=== PATIENT | female | born 1930 | race Caucasian/White ===

== ENCOUNTER 2016-08-29 06:00 | Inpatient (IN) | payer OTHER, MEDICARE ==
[~2016-08-29] VITALS: Ht 165.1 cm; Wt 79.7 kg
--- NOTE | ~2016-08-29 | OR ---
PATIENT'S NAME: BETHANY PHILLIPSEN Elkin [facility] AGE: 86 Y [address] ROOM: [place] [address] LOCATION: GPCU ADMIT DATE: 08/29/2016 OR/Procedure Report DISCHARGE DATE: FAMILY PHYSICIAN: Enio Olson MD ATTENDING PHYSICIAN: MIGEL LESLIE SURGEON: Luisito Redding MD DATE OF PROCEDURE: 08/31/2016 PROCEDURE COMMUNITY HEALTH ADVISOR: Rosie Srinivasan, tower technician. PROCEDURES PERFORMED: 1. Bronchoscopy with bronchoalveolar lavage of the left lower lobe. 2. Bronchoscopy with therapeutic aspiration of blood clots and local injection of epinephrine solution. INDICATIONS AND PRE-PROCEDURE DIAGNOSES: 1. Hemoptysis. 2. Abnormal chest CT with dense consolidation in the left lower lobe. 3. History of atrial fibrillation. 4. Long-term anticoagulation. POSTPROCEDURE DIAGNOSES: 1. Hemoptysis due to active bleeding from left lower lobe. 2. Abnormal chest CT with dense consolidation in the left lower lobe. 3. History of atrial fibrillation. 4. Long-term anticoagulation. CONSENT: Consent was obtained from the patient and the patient's daughter, her POA, after all the indications, risks, benefits, and alternatives were explained at length. They verbalized understanding and provided an informed consent. The patient's daughter was available over the phone only. PROCEDURE DESCRIPTION: The patient was taken to the Endoscopy Suite where a laryngeal mask was placed by the Anesthesia Team uneventfully. The bronchoscope was advanced through the laryngeal mask and the airways were examined. Local anesthesia was achieved with lidocaine solution instillations. A total of 12 mL of 2% lidocaine solution was instilled at the level of vocal cords and bronchial trees. General anesthesia was managed by the Anesthesia MD, Dr. Patel. FINDINGS: The vocal cords had normal appearance. There was a small amount of bloody secretions in the distal trachea and at the takeoff of the right mainstem bronchus, and large amount of secretions in the left mainstem bronchus. All the secretions were aggressively suctioned using saline PATIENT'S NAME: BETHANY PHILLIPSEN Elkin [facility] AGE: 86 Y [address] ROOM: [place] [address] LOCATION: GPCU ADMIT DATE: 08/29/2016 OR/Procedure Report DISCHARGE DATE: FAMILY PHYSICIAN: Enio Olson MD ATTENDING PHYSICIAN: MIGEL LESLIE aliquots at times. There was evidence of active bleeding coming from the superior and lateral segments of the left lower lobe. However, there was no evidence of endobronchial tumors seen in any of the segments of both bronchial trees. She had severe inflammation and edema in the airways of the left lower lobe. A bronchoalveolar lavage was performed in the left lower lobe superior segment. 80 mL of saline were instilled with return of 20 mL of bloody bronchoalveolar lavage fluid. There was still evidence of minimal bleeding from the superior segment. Initially, I used cold saline instillations, but the bleeding continued. Eventually, I instilled 6 mL of epinephrine solution diluted to 1:11210. At the end of the procedure, there was no evidence of active bleeding. The bronchoscope was withdrawn and the patient was returned to the Anesthesia Team for further management. COMPLICATIONS: None. ESTIMATED BLOOD LOSS: None from the procedure. The patient had evidence of active bleeding at the time of procedure. SPECIMENS: The bronchoalveolar lavage will be sent for microbiology and cytology studies. MD MARIAH BLUE/modl /[id number] d: 08/31/162020 t: 09/01/16 1132, OPERATIVE SUMMARY
--- NOTE | ~2016-08-29 | DS ---
PATIENT'S NAME: LYLA PHILLIPS [facility] AGE: 86 Y [address] ROOM: [place] [address] LOCATION: GPCU ADMIT DATE: 08/29/2016 Discharge Summary DISCHARGE DATE: 09/03/2016 FAMILY PHYSICIAN: Enio Olson MD ATTENDING PHYSICIAN: Giuliana Matamoros TENTATIVE DATE OF DISCHARGE: September 03, 2016. PRIMARY DIAGNOSES: 1. Left lower lobe pneumonia, severe. 2. Hemoptysis. 3. Diabetes type 2. 4. Alzheimer's dementia. 5. Acute on chronic hypoxic respiratory failure. 6. Systemic inflammatory response syndrome. 7. Chronic kidney disease stage 3. PROCEDURE: Principal procedure done for the patient includes an EGD by Dr. Angel and also a bronchoscopy with a bronchoalveolar by Dr. Redding. LABORATORY DATA: On admission, WBC on admission was 12.6, prior to discharge was 5.6; H and H on admission was 11.5/35.5, prior to discharge was 10.4/31.5; platelets 203, prior to discharge it was 241. On admission, creatinine was 1.4, was stable throughout the hospital stay, upon discharge, it remained at 1.4. Sodium on admission is 138, prior to discharge remained same at about 140 upon discharge. Potassium was stable throughout her hospital stay, upon discharge it was 3.9. Bicarb was stable throughout hospital stay as well. BUN was 20, was also stable throughout the hospital stay. Magnesium on admission 1.9, prior to discharge remained at 1.9. Hemoglobin A1c was 8.4. INR was 1.0. Bronchoalveolar lavage for viral analysis was all negative. For chlamydia, it was also negative. Bronchioalveolar lavage analysis, wbc 0.95, neutrophil differential 75%. For CMV, is pending, and for Legionella, it is also pending as bronchoalveolar lavage. Microscopy, sputum fungus light growth. BAL Gram stain, bacteria not observed. Normal respiratory jcarlos. Bronchoalveolar lavage, no acid-fast observed. No fungal elements observed. No yeast culture in 2 days in bronchioalveolar lavage. Viral culture is still pending. RADIOLOGY: CT of the chest, dense streaky parenchymal opacities within the mid and lower left lung, underlining pneumonia cannot be excluded. In addition, there is a cavitary lesion at the mid left lung, underlining infection and abscess cannot be excluded. A cavitary mass or possible pneumatocele with addition of consolidation, small left pleural fluid collection, shotty anterior and middle mediastinal lymph nodes with a 16 mm precarinal lymph node present. PATIENT'S NAME: LYLA PHILLIPS [facility] AGE: 86 Y [address] ROOM: [place] [address] LOCATION: GPCU ADMIT DATE: 08/29/2016 Discharge Summary DISCHARGE DATE: 09/03/2016 FAMILY PHYSICIAN: Enio Olson MD ATTENDING PHYSICIAN: [facility] COURSE: For history of present illness, please take a look at the H and P, which was done by Dr. Matamoros. The patient was admitted to progressive care unit. Because of her presentation of possible hemoptysis versus hematemesis, the patient did get a GI consult, and the patient subsequently had an EGD done on the first day. EGD was essentially negative which did not reveal any sign or cause for hemoptysis except that it did show some blood on the vocal cord, so GI felt possibly the patient's presenting symptoms may have been secondary to hemoptysis. So the patient did get a CT of her chest done which was done on the next day of the hospital stay. She was started empirically on Levaquin from the first day of the hospital stay. After obtaining an abnormal CT chest, Pulmonary was consulted for further management given the patient's symptom of hemoptysis. For the second day of the hospital stay, the patient continued to have mild to moderate hemoptysis. Each time she coughed, she would have streaks, sometimes coin-sized bright red blood on her tissue. After the patient was evaluated by Pulmonary, they recommended to do a bronchoscopy on the third day of the hospital stay. The procedure was done, was well tolerated by the patient, and after this, they felt probably the patient's abnormal CT finding might be secondary to severe left lower lobe pneumonia and they recommended to continue on the antibiotics of Levaquin and also to continue on the Zosyn which was added after the abnormal CT scan was obtained. Pulmonary also continued to follow up with the patient, and the patient was continued on the Levaquin and Zosyn, and on September 02, 2016. After discussing with Pulmonary, they felt that the patient's Eliquis can be restarted just to monitor the patient and see if there will be worsening of the hemoptysis. Plan by Pulmonary was to continue to observe the patient for the next 24-48 hours after which the patient might be switched to p.o. antibiotics, after reviewing all the respiratory cultures which remained negative at the time of dictating this discharge summary. So the remaining part of the discharge summary will be done upon the patient's discharge. MEDICATION ON DISCHARGE: The antibiotics which the patient will be discharged on also will be dictated upon discharge. Other medications include: 1. Eliquis 2.5 mg p.o. twice daily. 2. Coreg 3.125 mg p.o. twice daily. 3. Cardizem 30 mg p.o. 3 times daily. 4. NovoLog sliding scale. 5. Florastor 250 mg p.o. twice daily, new medication. 6. Torsemide 20 mg p.o. daily. 7. Tylenol 650 mg p.o. q.6 hours p.r.n. 8. Dulcolax one tablet p.o. daily p.r.n. 9. Milk of magnesia 30 mL p.o. daily p.r.n. 10. Zofran 4 mg p.o. q.4 hours p.r.n. PATIENT'S NAME: LYLA PHILLIPS [facility] AGE: 86 Y [address] ROOM: [place] [address] [facility] ADMIT DATE: 08/29/2016 Discharge Summary DISCHARGE DATE: 09/03/2016 FAMILY PHYSICIAN: Enio Olson MD ATTENDING PHYSICIAN: Giuliana Matamoros 11. Potassium 8 mEq p.o. twice daily. 12. Humibid 600 mg p.o. twice daily as needed p.r.n. 13. Tramadol 50 mg p.o. q.4 hours p.r.n. 14. Albuterol 2 puffs nebs every 4 hours p.r.n. 15. Albuterol 2.5 mg 3 times daily p.r.n. 16. Lantus 10 units subcu q.h.s. 17. Aspirin 81 mg p.o. daily. 18. Fluticasone one puff daily. 19. Flonase 2 sprays in nose every day. 20. Myrbetriq 50 mg p.o. daily. 21. Actos 30 mg p.o. daily. 22. Exelon patch 9.5 mg transdermally every day. 23. Azelastine one drop twice daily in the eyes. 24. Tylenol PM extra strength one tablet p.o. q.h.s. Discharge time which was spent on this patient is approximately 35 minutes which included coordinating the patient's discharge plan with the care management team. MD WHIT MASTERSON/samuell /[id number] d: 09/02/16 2354 t: 09/13/16 1643, DISCHARGE SUMMARY
--- NOTE | ~2016-08-29 | CON ---
PATIENT'S NAME: LYLA PHILLIPS [facility] AGE: 86 Y [address] ROOM: [id number] [place], [place] [address] LOCATION: GPCU ADMIT DATE: 08/29/2016 Consultation DISCHARGE DATE: FAMILY PHYSICIAN: PHYSICIAN, UNKNOWN ATTENDING PHYSICIAN: MIGEL MATAMOROS DATE OF CONSULTATION: 08/29/2016 REFERRING PHYSICIAN: Migel Matamoros MD REASON FOR CONSULTATION: Hematemesis. HISTORY OF PRESENT ILLNESS: This is a very pleasant, 86-year-old female who was transferred from an outside facility after presenting there with a couple of episodes of hematemesis. The patient is a current resident at the [facility]. At the [facility], it was reported that she had a history of nausea, vomiting, and hematemesis. The patient is a slightly poor historian secondary to a history of dementia and confusion. While in the emergency room, she did have a little bit of cough where it was suspected that this could have likely been more hemoptysis versus hematemesis. She does have a history of DVT, with IVC filter placement. She also has a history of atrial fibrillation, on long- term anticoagulation being Eliquis. Her last dose of Eliquis was confirmed on 08/28/2016. Secondary to her mental status, we did discuss this with her daughter Pattie. It appears that there is a very distant history of an upper endoscopy, though she cannot give me any more details. At this time, the patient has been made n.p.o. She is also placed on Protonix. On examination, she did complain of some abdominal pain in her mid epigastric as well as her right upper quadrant, though again the patient is a slightly poor historian. She denies any chest pain, chest pressure, or shortness of breath at this time. PAST MEDICAL HISTORY: Hypertension; diabetes mellitus; heart disease; lung disease; renal disease; history of DVT, status post IVC filter placement; and CAD, status post multiple cardiac procedures. PAST SURGICAL HISTORY: Appendectomy, bladder suspension, cardiac cath, multiple cardiac procedures, cholecystectomy, colonoscopy, distant history of IVC filter placement, knee surgery, venous abdominal surgery, and tubal ligation. SOCIAL HISTORY: The patient currently resides at a [facility]. Per the medical review, it appears that there is no alcohol, tobacco, or illicit drug use. PATIENT'S NAME: LYLA PHILLIPS [facility] AGE: 86 Y [address] ROOM: [address] [place], [place] [address] LOCATION: GPCU ADMIT DATE: 08/29/2016 Consultation DISCHARGE DATE: FAMILY PHYSICIAN: PHYSICIAN, UNKNOWN ATTENDING PHYSICIAN: MIGEL MATAMOROS FAMILY HISTORY: Unknown secondary to the patient's dementia. ALLERGIES: PER THE MEDICAL RECORD, XANAX, AMBIEN, ARICEPT, BEE STING, COFFEE FLAVOR, COUMADIN, DARVOCET, DEODORANT, DILAUDID, EGGS, ETHER, FISH, MILK, MORPHINE SULFATE, NABUMETONE, PENICILLINS, PRADAXA, PREVACID, STEROID, TEA, AND ZOFRAN. CURRENT MEDICATIONS: Please refer to the medication administration record, significant for Eliquis with her last dose being 08/28/2016 as well as aspirin. REVIEW OF SYSTEMS: A 10-point review of systems was completed, all were negative except for those identified in the History of Present Illness. PHYSICAL EXAMINATION: GENERAL: A very pleasant, 86-year-old female who appears to be in no acute distress. VITAL SIGNS: Temperature 97.8, pulse of 71, respirations of 18, blood pressure 139/80, and oxygen saturation is 97%. SKIN: Economy, warm, and dry. No jaundice. HEENT: Head is normocephalic and atraumatic. Pupils are equal, round, and reactive to light. Sclerae are clear, nonicteric. Oral mucosa is pink and moist. No thyromegaly. NECK: Soft and supple. CARDIOVASCULAR: Regular. Normal S1 and S2. RESPIRATORY: Respirations even and unlabored. Lungs clear to auscultation. ABDOMEN: Soft and round. Mildly tender in the right upper quadrant and mid epigastric area with palpation. No rebound, rigidity, or guarding noted. Bowel sounds positive x4 quadrants. MUSCULOSKELETAL: No muscle weakness or atrophy. EXTREMITIES: No clubbing, cyanosis, or edema. NEUROLOGICAL: Grossly nonfocal. The patient does appear to be slightly confused secondary to dementia versus Xanax given at the outside facility. LABORATORY AND DIAGNOSTIC DATA: The patient did undergo laboratory evaluation at the outside facility showing white blood cell count of 12.4, hemoglobin stable at 12.7, hematocrit of 38, and platelets were 220. INR was 1.4 and PTT of 34. Sodium 136, potassium of 4.7, chloride of 101, CO2 of 27, BUN of 21, and creatinine 1.33. AST 22, alkaline phosphatase 105, total bilirubin 0.7, and ALT of 18. Lipase was 18. Lactic acid was normal at 1.0. Chest x-ray was also completed, showing left lower lobe pneumonia with slight pleural effusion. CT, according to the PATIENT'S NAME: LYLA PHILLIPS [facility] AGE: 86 Y [address] ROOM: [id number] [place], [place] [address] LOCATION: GPCU ADMIT DATE: 08/29/2016 Consultation DISCHARGE DATE: FAMILY PHYSICIAN: PHYSICIAN, UNKNOWN ATTENDING PHYSICIAN: MIGEL MATAMOROS medical record, was also completed that was "normal," though I do not have this report available at this time. ASSESSMENT AND PLAN: Again, this is a very pleasant, 86-year-old female who was transferred to [facility] for workup regarding hematemesis. Per the medical record, it does appear that the patient had hematemesis at the [facility]. Her hemoglobin appears to be stable at 12.7. This was discussed with the patient's daughter since the patient does have dementia as well as was given Xanax at the outside facility. There is a distant history of an upper endoscopy, though we do recommend going forth with an upper endoscopy for further evaluation. Risks, benefits, and alternatives were discussed with the patient's daughter per Dr. Tiffanie Angel as a phone consent was obtained. Further recommendations to be given status post upper endoscopy. The patient should be continued on Protonix IV until further notice. Thank you for this consult. EULOGIO MEDINA APRN FOR MD JOHN ROSS/samuell /[id number] d: 08/29/16 1814 t: 09/04/16 1441, CONSULTATION REPORT
--- NOTE | ~2016-08-29 | CON ---
PATIENT'S NAME: LYLA PHILLIPS [facility] AGE: 86 Y [address] ROOM: [place] [address] LOCATION: GPCU ADMIT DATE: 08/29/2016 Consultation DISCHARGE DATE: 09/03/2016 FAMILY PHYSICIAN: Enio Olson MD ATTENDING PHYSICIAN: Giuliana Matamoros DATE OF CONSULTATION: 08/31/2016 REFERRING PHYSICIAN: Luisito Redding MD INDICATION: Hemoptysis and abnormal CT. HISTORY OF PRESENT ILLNESS: This is an 86-year-old female, who was transferred from [place]. She has a history of diabetes, dementia, DVT with IVC, atrial fibrillation, on long- term anticoagulation. She lives in a [facility] and reportedly had a nonproductive cough for several days and says that she went to the ER because she "just did not feel well." She also had hemoptysis versus emesis, nausea, vomiting, and a fever of 100.5 during her ER evaluation. Because of possible hemoptysis versus emesis, she has already had an EGD since being admitted which did not demonstrate any esophageal lesions or blood in the stomach. It was noted that the only blood found were swallowed blood from hemoptysis. Therefore, she had a CT of the chest which revealed a cavitary lesion and adenopathy. We were consulted for the hemoptysis and abnormal CT with need for probable bronchoscopy. Currently, the patient denies any chest pain, shortness of breath, PND, orthopnea, wheezing, or edema. She has no history of tobacco use. PAST MEDICAL HISTORY: Includes hypertension, diabetes, heart disease, lung disease, history of DVT with IVC filter, atrial fibrillation on long-term anticoagulation, and dementia. ALLERGIES: SEE MAR. MEDICATIONS: See MAR. FAMILY HISTORY: Negative for lung disease. SOCIAL HISTORY: She lives in a [facility]. She has never smoked. PATIENT'S NAME: HAYLIE PHILLIPSLEEN [place] [facility] AGE: 86 Y [address] ROOM: [place] [address] LOCATION: GPCU ADMIT DATE: 08/29/2016 Consultation DISCHARGE DATE: 09/03/2016 FAMILY PHYSICIAN: Enio Olson MD ATTENDING PHYSICIAN: Giuliana Matamoros REVIEW OF SYSTEMS: A 12-point review of systems negative except for what is noted in the HPI. PHYSICAL EXAMINATION: VITAL SIGNS: Blood pressure 112/54, pulse 67, respiratory rate 16, temp 97.5, she is 2 L per nasal cannula at 98%. GENERAL: This is an 86-year-old female, who is alert and oriented x3 and appears in no acute distress at the time of exam. HEENT. Head: Normocephalic and atraumatic. Eyes, clear. NECK: Supple. No adenopathy. No carotid bruits or JVD. LUNGS: Decreased breath sounds with crackles at the left base. HEART: Regular rate and rhythm without murmur, gallop, or rub. ABDOMEN: Soft, nontender, and nondistended. Bowel sounds x4. EXTREMITIES: No cyanosis, clubbing, or edema. DIAGNOSTIC DATA: Potassium 3.6, sodium 138, BUN 26, creatinine 1.5. WBC 5.9, hemoglobin 10.7, hematocrit 35.2, platelets 240. CT of the chest showed cavitary lesion with adenopathy. ASSESSMENT: 1. Hemoptysis, most likely due to dense consolidation in the left lung. 2. Abnormal chest CT, suspect severe pneumonia with abscess formation versus myocardial infarction versus malignancy less likely. 3. Acute respiratory failure secondary to abnormal chest CT. 4. Long-term anticoagulation, on hold. PLAN: We will plan for bronchoscopy with BAL and possible endobronchial biopsies. Indications, risks, benefits, and alternatives were discussed with the patient who has agreed to the procedure. For now, we will continue with antibiotics, but she may need MRSA coverage. Thank you for the consult and opportunity to participate in the patient's care. BEATRIZ LOPEZ APRN FOR MD PARISH BLUE/siva /[id number] d: 09/11/162037 t: 09/26/16 0652, CONSULTATION REPORT
--- NOTE | ~2016-08-29 | HP ---
PATIENT'S NAME: LYLA PHILLIPS [facility] AGE: 86 Y [address] ROOM: [place] [address] LOCATION: GPCU ADMIT DATE: 08/29/2016 History & Physical DISCHARGE DATE: FAMILY PHYSICIAN: PHYSICIAN, UNKNOWN ATTENDING PHYSICIAN: MIGEL LESLIE DATE OF SERVICE: CHIEF COMPLAINT: Hematemesis, pneumonia. HISTORY OF PRESENT ILLNESS: This is an 86-year-old female who appears to have a history of DVT, paroxysmal atrial fibrillation on Eliquis, also has a history of diabetes, presented initially to [facility] from the retirement. She left out with complaints of nausea, vomiting, and hematemesis since last night. The patient also reports history of cough which has been mostly nonproductive, has been going on for the past several days in addition to this. The patient tells me that she had first noticed spitting up blood yesterday, but states that she did see blood in her vomitus last night, before her arrival to the emergency room. Upon evaluation, the patient was noted to have low-grade temperature of 100.5 as well. The patient during my visit here was sleepy and just gotten a dose of Ativan before her transportation here and was not able to get the detailed history from. The patient otherwise looks hemodynamically stable. Denies any abdominal pain, nausea, vomiting, diarrhea, constipation at this point. The patient is on Eliquis as well. PAST MEDICAL HISTORY: 1. Type 2 diabetes. 2. History of DVT. 3. Hypertension. 4. History of IVC filter placement. SOCIAL HISTORY: No reports of history of smoking, heavy drinking, or any other illicit drug use. FAMILY HISTORY: No reports of heart disease, cancer, or diabetes. REVIEW OF SYSTEMS: All systems have been reviewed and were negative except as described in the HPI. PHYSICAL EXAMINATION: PATIENT'S NAME: HAYLIE PHILLIPSLEEN Elkin [facility] AGE: 86 Y [address] ROOM: [place] [address] LOCATION: GPCU ADMIT DATE: 08/29/2016 History & Physical DISCHARGE DATE: FAMILY PHYSICIAN: PHYSICIAN, UNKNOWN ATTENDING PHYSICIAN: MIGEL LESLIE VITAL SIGNS: Temperature 97.8, respiratory rate 18, blood pressure 139/80, heart rate 72. GENERAL: The patient is sleepy but arousable. Awake, alert, oriented x3, in no acute distress. HEENT: Dry mucous membranes, but no scleral icterus or conjunctival pallor noted. SKIN: Without rash or lesions. CHEST: Clear to auscultation bilaterally. HEART: S1, S2. Regular rate and rhythm. ABDOMEN: Soft. Nontender, nondistended. Positive bowel sounds. EXTREMITIES: Without edema. MUSCULOSKELETAL: No joint tenderness, swelling, or muscular tenderness noted. NEURO: Grossly nonfocal. STUDIES: The patient has had CT scan of her abdomen and pelvis done, which was not remarkable for acute findings. Hemoglobin and hematocrit were stable. All her other labs looked okay as well. ASSESSMENT AND PLAN: 1. Hematemesis. This is in the setting of patient being on anticoagulation for what appears paroxysmal atrial fibrillation and history of deep venous thrombosis. The patient reports having had at least two episodes of what appeared to be hematemesis, although at this point we will ask for GI evaluation. We will keep n.p.o. We will put on Protonix IV b.i.d. and hold all anticoagulant. 2. Community-acquired pneumonia. Chest x-ray showed left lower infiltrate and did have a low-grade temp as well. We will continue treatment with IV Levaquin and monitor clinical progress. 3. Type 2 diabetes. We will treat with sliding scale insulin while the patient is alert and adjust accordingly. 4. Hypertension. The patient is normotensive. We will hold her blood pressure medications in the setting of possible gastrointestinal bleed and monitor clinical progress. 5. History of deep venous thrombosis. Looking at her chart, it appears that she does have history an IVC placement as well. We will hold all blood thinners at this point. 6. Paroxysmal atrial fibrillation. Hold. Blood thinners. 7. Deep venous thrombosis prophylaxis. We will use SCDs. 8. Chronic hypoxic respiratory failure. Continue her oxygen per her home regimen which is 2.5 L nasal cannula supplemental oxygen. PATIENT'S NAME: LYLA PHILLIPS [facility] AGE: 86 Y [address] ROOM: [id number] [place], [place] [address] LOCATION: [facility] ADMIT DATE: 08/29/2016 History & Physical DISCHARGE DATE: FAMILY PHYSICIAN: PHYSICIAN, UNKNOWN ATTENDING PHYSICIAN: MIGEL LESLIE MD BG/samuell /[id number] D: [id number] T: 520 HISTORY & PHYSICAL
--- NOTE | 2016-08-29 11:22 | NUR ---
Pt is 86 y/o female admit for hemoptysis/pneumonia/coffee ground emesis for hospitalist. Pt very lethargic. Arouses to voice after a few attempts. Follows commands. Pt has hx dementia/Alzheimers,CHF,htn,hypotension,CAD,aflutter/afib, DVT,PE,edema,emphysema,COPD,DM,PUD,GI bleed,N/V,renal insufficiency. See chart for complete hx. Pt resides at [facility]. Came via ambulance from [facility] in [place]. Pt sedated on arrival due to Xanax given en route or shortly before departure. Has many allergies. See chart. Red and yellow bracelets on. GI to consult.
[2016-08-29] MEDS ORDERED: NOVOLOG100 UNIT/M SUB-Q (12:00)
[2016-08-29] MEDS ORDERED: LANTUS (IN100 UNIT/M SUB-Q (12:02)
[2016-08-29] MEDS ORDERED: ASPIRIN LO-DOSE81 MG PO (12:02)
[2016-08-29] MEDS ORDERED: BREO ELLIPTA 11 EACH INH (12:03)
[2016-08-29] MEDS ORDERED: FLONASE 50 MCG/16 GM NOSE (12:04)
[2016-08-29] MEDS ORDERED: LUTEIN6 MG PO (12:06)
[2016-08-29] MEDS ORDERED: ACTOS30 MG PO (12:07)
[2016-08-29] MEDS ORDERED: MYRBETRIQ50 MG PO (12:07)
[2016-08-29] MEDS ORDERED: MIRALAX PO527 GM/BOT PO (12:08)
[2016-08-29] MEDS ORDERED: DEMADEX20 MG PO (12:09)
[2016-08-29] MEDS ORDERED: EXELON1 EAC1 TRANS (12:09)
[2016-08-29] MEDS ORDERED: AZELASTINE HCL6 ML OPHTH (12:10)
[2016-08-29] MEDS ORDERED: COREG 3.1253.125 MG PO (12:11)
[2016-08-29] MEDS ORDERED: ELIQUIS2.5 MG PO (12:11)
[2016-08-29] MEDS ORDERED: CARDIZEM30 MG PO (12:13)
[2016-08-29] MEDS ORDERED: KLOR-CON SPRINK8 MEQ PO (12:13)
[2016-08-29] MEDS ORDERED: TYLENOL PM EX-1 EACH PO (12:14)
[2016-08-29] MEDS ORDERED: TYLENOL325 MG PO (12:15)
[2016-08-29] MEDS ORDERED: MILK OF MA400 MG/5 M PO (12:16)
[2016-08-29] MEDS ORDERED: DULCOLAX5 MG PO (12:16)
[2016-08-29] MEDS ORDERED: PROVENTIL OR V6.7 GM INH (12:17)
[2016-08-29] MEDS ORDERED: ZOFRAN4 MG PO (12:17)
[2016-08-29] MEDS ORDERED: PROVENTIL2.5 MG/0.5 INH (12:19)
[2016-08-29] MEDS ORDERED: ULTRAM50 MG PO (12:20)
[2016-08-29] MEDS ORDERED: BUTALBITAL-ASA1 EACH PO (12:20)
[2016-08-29 14:17] LABS: BASOPHIL % 0.2 %; HEMATOCRIT 35.5 % (30.0-46.0); HEMOGLOBIN 11.5 g/dL (10.0-15.0); IMMATURE GRANULOCYTE % 0.3 %; LYMPHOCYTE # 1.2 K/uL (0.8-4.0); LYMPHOCYTE % 9.3 %; MCH 30.3 pg (27.0-34.0); MCHC 32.4 gm/dL (32.0-36.5); MCV 93.7 fl (83.0-98.0); MONOCYTE # 0.7 K/uL (0.0-1.0); MONOCYTE % 5.3 %; MPV 9.5 fl (9.4-12.4); NEUTROPHIL # (ANC) 10.7 K/uL (1.8-7.8); NEUTROPHIL % 84.9 %; NRBC % 0 /100WBC (0-0.00); PLATELET COUNT 203 K/uL (150-450); RBC 3.79 M/uL (3.00-5.00); RDW-CV 14.1 % (11.9-14.6); WBC 12.6 K/uL (4.0-11.0)
[2016-08-29 14:28] LABS: INR - (THERAPEUTIC) 1.07 (0.92-1.07); PROTIME 11.2 SECONDS (9.8-11.4)
[2016-08-29 14:33] LABS: ALBUMIN 2.5 gm/dL (3.5-5.0); ANION GAP 11.6 (10.0-19.0); CALCIUM 9.2 mg/dL (8.5-10.5); CREATININE 1.4 mg/dL (0.5-1.1); MAGNESIUM 1.9 mg/dL (1.8-2.6); POTASSIUM 4.6 mMol/L (3.7-5.1)
--- NOTE | 2016-08-29 16:43 | NUR ---
Significant Event: PT. GETTING TO BE MORE ALERT SINCE ADMISSION, CAN BE A/OX3 AT TIMES, BUT VERY FORGETFUL, WILL REPEAT WORDS AT TIMES. VSS ON 2L PER NC. EGD WAS NEGATIVE. PT. REFUSES TO GO DOWN FOR CT OF HER CHEST, NEED TO TRY LATER IF NOT IN AM. GETS UP 1 ASSIST WITH GAIT BELT/WALKER. NO COMPLAINTS OF PAIN THIS SHIFT. VOIDED X1. MILD SSI WITH AC/HS ACCU-CHECKS. IV TO LEFT CHEST PORT, FLUSHES WELL BUT NO BLOOD RETURN. RESTING WELL IN BED. Follow up: CONTINUE WITH POC.
--- NOTE | 2016-08-29 22:08 | NUR ---
For 1899 assessment: Patient did not allow nurse to assess bowels. Nurse reoriented patient and explained the importance of assessment and patient continued to refuse the assessment. Nurse will attempt to assess bowels for 2299.
--- NOTE | 2016-08-30 04:54 | NUR ---
Significant Event: A/O to person. Uncooperative with orientation questions. Agitated and combative at times. Used repetitive statements such as "I'm fine, leave me alone" when nurse attempted assessments. Bed alarm on at all times. Does not use call light. Pt attempted to get out of bed several times. Hx of dementia/alzheimers. VSS on 3L. LS clear; diminished in bases. Strong clearing cough. Coughed up bloody sputum x1. Hypoactive bowel sounds. 1 assist w/ walker. Follow up: CT today if patient is cooperative.
[2016-08-30 06:11] LABS: BASOPHIL % 0.3 %; EOSINOPHIL # 0.1 K/uL (0.0-0.5); EOSINOPHIL % 0.8 %; HEMATOCRIT 35.2 % (30.0-46.0); HEMOGLOBIN 11.5 g/dL (10.0-15.0); IMMATURE GRANULOCYTE % 0.4 %; LYMPHOCYTE # 1.3 K/uL (0.8-4.0); LYMPHOCYTE % 16.6 %; MCH 30.2 pg (27.0-34.0); MCHC 32.7 gm/dL (32.0-36.5); MCV 92.4 fl (83.0-98.0); MONOCYTE # 0.7 K/uL (0.0-1.0); MPV 9.7 fl (9.4-12.4); NEUTROPHIL # (ANC) 5.5 K/uL (1.8-7.8); NEUTROPHIL % 72.9 %; NRBC % 0 /100WBC (0-0.00); RBC 3.81 M/uL (3.00-5.00); RDW-CV 14.4 % (11.9-14.6); WBC 7.6 K/uL (4.0-11.0)
[2016-08-30 06:38] LABS: PLATELET COUNT 203 K/uL (150-450)
[2016-08-30 10:16] LABS: ANION GAP 13.1 (10.0-19.0); CALCIUM 9.3 mg/dL (8.5-10.5); CREATININE 1.4 mg/dL (0.5-1.1); POTASSIUM 4.1 mMol/L (3.7-5.1)
--- NOTE | 2016-08-30 10:40 | NUR ---
Diabetes consult: Patient with a blood sugar of 64 this a.m. Recommend reducing Levemir dose from 10 units to 7 units at HS. Will continue to trend blood sugars.
--- NOTE | 2016-08-30 12:36 | NUR ---
Introduced self and role of care management to patient. She states that she lives at the [facility]. [facility]. I attempted to contact her daughter Kathleen there just a busy signal on the phone. Will continue to try and contact daughter. Will contiue to follow.
--- NOTE | 2016-08-30 15:18 | NUR ---
Significant Event: pt up to chair/bathroom 1 asst/walker. PT worked with pt. 02 weaned 2liters. Extra labs today, called. Sputum collected. Pt has some bloody small sputum at certain times today with a cough. BG 64 on first accucheck, juice and toast given. Pt has been pleasant and coopertive but forgetful. Follow up:
[2016-08-31 03:43] LABS: BASOPHIL % 0.3 %; EOSINOPHIL # 0.1 K/uL (0.0-0.5); EOSINOPHIL % 1.4 %; HEMATOCRIT 33.2 % (30.0-46.0); HEMOGLOBIN 10.7 g/dL (10.0-15.0); IMMATURE GRANULOCYTE % 0.3 %; LYMPHOCYTE # 1.4 K/uL (0.8-4.0); LYMPHOCYTE % 23.5 %; MCH 30.2 pg (27.0-34.0); MCHC 32.2 gm/dL (32.0-36.5); MCV 93.8 fl (83.0-98.0); MONOCYTE # 0.7 K/uL (0.0-1.0); MONOCYTE % 12.4 %; MPV 9.7 fl (9.4-12.4); NEUTROPHIL # (ANC) 3.7 K/uL (1.8-7.8); NEUTROPHIL % 62.1 %; NRBC % 0 /100WBC (0-0.00); PLATELET COUNT 240 K/uL (150-450); RBC 3.54 M/uL (3.00-5.00); RDW-CV 14.2 % (11.9-14.6); WBC 5.9 K/uL (4.0-11.0)
[2016-08-31 03:59] LABS: ANION GAP 9.6 (10.0-19.0); CALCIUM 9.3 mg/dL (8.5-10.5); CREATININE 1.5 mg/dL (0.5-1.1); MAGNESIUM 1.9 mg/dL (1.8-2.6); POTASSIUM 3.6 mMol/L (3.7-5.1)
--- NOTE | 2016-08-31 04:25 | NUR ---
Significant Event: A/O to person/time. Forgetful and confused when woken up during night. Denies pain. VSS on 2-3L. SBP 110-120s. HR 70-80s. LS clear, some crackles in bases. Coughed up bloody sputum x1 around supper time. Pt rested well throughout the night. Follow up: Possible bronch today.
--- NOTE | 2016-08-31 11:59 | NUR ---
I did call daughter Pattie with new number [phone] and introduced myself and role of care management. She states yes her mother is at [facility] and plans on her returning back when ready. She wants to make sure the nurse calls with update when she is done with the procedure. I will update her nurse.
--- NOTE | 2016-08-31 16:16 | NUR ---
Patient is alert and oriented to self. VSS on 3L O2. 1 assist with walker and gait belt. Diabetic diet. L) chest port has Zosyn infusing. Continues to cough up bloody sputum. NPO this AM for a bronchoscopy. Returned around 1520. ACHS accuchecks with 0700 BS at 64, OJ given and retake was 80. DC'd maru. Awaiting results from the [facility].
[2016-09-01 04:14] LABS: BASOPHIL % 0.4 %; EOSINOPHIL # 0.1 K/uL (0.0-0.5); EOSINOPHIL % 1.4 %; HEMATOCRIT 32.1 % (30.0-46.0); HEMOGLOBIN 10.7 g/dL (10.0-15.0); IMMATURE GRANULOCYTE % 0.4 %; LYMPHOCYTE # 1.4 K/uL (0.8-4.0); LYMPHOCYTE % 24.9 %; MCH 30.5 pg (27.0-34.0); MCHC 33.3 gm/dL (32.0-36.5); MCV 91.5 fl (83.0-98.0); MONOCYTE # 0.6 K/uL (0.0-1.0); MONOCYTE % 10.4 %; MPV 9.1 fl (9.4-12.4); NEUTROPHIL # (ANC) 3.5 K/uL (1.8-7.8); NEUTROPHIL % 62.5 %; NRBC % 0 /100WBC (0-0.00); PLATELET COUNT 234 K/uL (150-450); RBC 3.51 M/uL (3.00-5.00); WBC 5.6 K/uL (4.0-11.0)
[2016-09-01 04:25] LABS: ANION GAP 16.1 (10.0-19.0); CALCIUM 8.5 mg/dL (8.5-10.5); CREATININE 1.4 mg/dL (0.5-1.1); MAGNESIUM 1.9 mg/dL (1.8-2.6); POTASSIUM 4.1 mMol/L (3.7-5.1)
--- NOTE | 2016-09-01 06:57 | NUR ---
Significant Event: DISORIENTED TO PLACE AT TIMES. FORGETFUL. MORE CONFUSED AFTER SHE WAKES UP FROM SLEEPING. BED AND CHAIR ALARM ON AT ALL TIMES. TURNS SELF. 1 ASSIST WITH WALKER TO BR. AFEBRILE. VSS ON 3L. DENIES PAIN. PORT TO L) CHEST SL. DR. ROSADO UP TO SEE PATIENT AROUND 0300 DUE TO PORT MALFUNCTIONING. NO BLOOD RETURN AND PAIN TO L) SHOULDER WITH FLUSHING. VASCULAR ACCESS CONSULT FOR THIS AM. HELD 0500 DOSE OF ZOSYN. TO BE GIVEN AFTER PORT IS FIGURED OUT. COUGHED UP A JUDAH SIZE OF BLOODY SPUTUM THIS SHIFT. WAS INCONTINENT OF URINE X1. VOIDED 500+. NO BM THIS SHIFT. CONTINUE WITH IV ANTIBIOTICS. Follow up: CONTINUE WITH PLAN OF CARE.
--- NOTE | 2016-09-01 18:42 | NUR ---
Significant Event: VSS AND RA. WORKS WITH PT/OT AND AMBULATES IN ROOM. VOIDS WITH ADEQUATE UOP, BM X1. PORT FLUSHED THIS AM, NO BLOOD RETURN NOTED; NO PAIN WHEN FLUSHED; VASCULAR ACCESS NOT IN HOSPITAL TO ASSESS. CATH DAISY ACTIVASE X1 PER DR. WEBER DID NOT RETURN BLOOD FLOW; ORDER TO HAVE VASCULAR ACCESS ASSESS ON SATURDAY AND NOT DE-ACCESS YET. ORDER TO START PIV FOR IV ABX. ONLY SMALL AMOUNT OF OLD BLOODY SPUTUM T/O SHIFT. Follow up: CONTINUE PLAN OF CARE.
--- NOTE | 2016-09-02 06:34 | NUR ---
Significant Event: DISORIENTED TO TIME PLACE AND SITUATION. WAS MORE CONFUSED AFTER AWAKING FROM SLEEP. BED ALARM ON AT ALL TIMES.RESTED IN BED ALL OF SHIFT. SBA WITH WALKER AND GB. TURNS SELF. VSS ON 1L. DENIES PAIN. STARTED A PERIPHERAL IV TO R) FA HAS NS @ TKO AND ZOSYN. ORDER TO NOT USE PORT TILL VASCULAR LOOKS AT IT SATURDAY. VOIDS FINE. NO BM THIS SHIFT. Follow up: CONTINUE WITH PLAN OF CARE.
[2016-09-02 06:52] LABS: BASOPHIL % 0.2 %; EOSINOPHIL # 0.1 K/uL (0.0-0.5); EOSINOPHIL % 1.8 %; HEMATOCRIT 31.5 % (30.0-46.0); HEMOGLOBIN 10.4 g/dL (10.0-15.0); IMMATURE GRANULOCYTE % 0.4 %; LYMPHOCYTE # 1.5 K/uL (0.8-4.0); MCH 30.1 pg (27.0-34.0); MCV 91.3 fl (83.0-98.0); MONOCYTE # 0.6 K/uL (0.0-1.0); MONOCYTE % 11.4 %; NEUTROPHIL # (ANC) 3.3 K/uL (1.8-7.8); NEUTROPHIL % 59.2 %; NRBC % 0 /100WBC (0-0.00); PLATELET COUNT 241 K/uL (150-450); RBC 3.45 M/uL (3.00-5.00); RDW-CV 14.1 % (11.9-14.6); WBC 5.6 K/uL (4.0-11.0)
[2016-09-02 07:05] LABS: ANION GAP 12.9 (10.0-19.0); CALCIUM 8.8 mg/dL (8.5-10.5); CREATININE 1.4 mg/dL (0.5-1.1); MAGNESIUM 1.9 mg/dL (1.8-2.6); POTASSIUM 3.9 mMol/L (3.7-5.1)
--- NOTE | 2016-09-02 10:26 | NUR ---
A - PT SCREENED D/T LOS. DISORIENTED/CONFUSED. HT: 65" WT: 177# BMI: 29.4. LABS: ACCUCHECK 64->200, GLU 140, BUN/CR 18/1.4, ALB 2.5. MEDS: IVF, LEVAQUIN, ZOSYN, FLORASTOR, BOWEL/NAUSEA, SSI. DIET: DIABETIC. INTAKE: 25-100%. D - INADEQUATE NUTRIENT INTAKE AT TIMES R/T DECREASED APPETITE AEB INTAKE RECORD. I - GOAL FOR INTAKE 50-100% BY NEXT ASSESSMENT. WILL ADD GLUCERNA BID. M/E - WILL MONITOR INTAKE F/U IN 3-5 DAYS.
--- NOTE | 2016-09-02 17:19 | NUR ---
Significant Event: VSS AND 2L/NC. AFEBRILE. DENIES PAIN. UP TO CHAIR AND AMBULATES WITH PT. UP TO BATHROOM WITH ADEQUATE UOP AND A MOD BM. IV ABX CONTINUE TO RT)FA PIV. REPOSITIONED Q2H AND ALOE TO BUTTOCKS. COOPERATIVE, CONFUSED STATEMENTS. SCANT AMOUNTS OF BLOODY SPUTUM NOTED. Follow up: CONTINUE PLAN OF CARE; VASCULAR VALIDATION SPECIALIST TO LOOK AT PORT TMRW; PROBABLE D/C BACK THE SC TMRW.
--- NOTE | 2016-09-03 04:37 | NUR ---
Significant Event: DISORIENTED AT TIMES TO PLACE. FORGETFUL. BED ALARM ON AT ALL TIMES. 1 ASSIST WITH WALKER TO BR. AFEBRILE. VSS ON 2L. DENIES PAIN. IV R) FA WITH ZOSYN RUNNING. L) CHEST PORT SL. ORDER TO NOT USE TILL VASCULAR LOOKS AT IT TODAY. MALFUNCTIONING PORT. VOIDS FINE. NO BM THIS SHIFT. D/C BACK TO [facility] TODAY. Follow up: CONTINUE WITH PLAN OF CARE.
[2016-09-03 06:36] LABS: BASOPHIL % 0.5 %; EOSINOPHIL # 0.2 K/uL (0.0-0.5); EOSINOPHIL % 2.5 %; HEMATOCRIT 30.4 % (30.0-46.0); HEMOGLOBIN 10.1 g/dL (10.0-15.0); IMMATURE GRANULOCYTE % 0.3 %; LYMPHOCYTE # 1.5 K/uL (0.8-4.0); LYMPHOCYTE % 24.7 %; MCH 30.2 pg (27.0-34.0); MCHC 33.2 gm/dL (32.0-36.5); MONOCYTE # 0.6 K/uL (0.0-1.0); MONOCYTE % 10.4 %; MPV 9.1 fl (9.4-12.4); NEUTROPHIL # (ANC) 3.8 K/uL (1.8-7.8); NEUTROPHIL % 61.6 %; NRBC % 0 /100WBC (0-0.00); PLATELET COUNT 231 K/uL (150-450); RBC 3.34 M/uL (3.00-5.00); RDW-CV 13.7 % (11.9-14.6); WBC 6.1 K/uL (4.0-11.0)
[2016-09-03 06:49] LABS: CREATININE 1.4 mg/dL (0.5-1.1)
--- NOTE | 2016-09-03 12:25 | NUR ---
0952 Call from Yessica at [facility], she tells me that she would like an update on Magda today if possible. Let her know that I would fax one over to her once I got up to her chart. I also let Yessica know that I had heard that she might be able to return to them today if they could accept once they got an update on her. Yessica tells me that it shouldn't be an issue taking her back, but there was no [place] van that would be able to come and pick her up. Yessica tells me that I should set up ambulance transfer back to them with [facility]. I asked her if that was supposed to be billed to them or if it would go to the patient. Yessica tells me to bill it to them. 1100 Faxed an update, along with the completed discharge medications/orders over to Yessica at [facility] so she could review it. 1115 Call over to Yessica at [facility], confirmed that she got the dismissal orders and updated fax on Magda. She did. Let her know I was setting up ambulance trasfer for 1400 today. She was fine with this. RN to RN number was give to LESLIE Verma to call in report before Magda returns back to SNF. 1120 Call to [facility], talked with Christy, set up transport time for 1400 today to take Magda from [facility] to [facility] in [place], [place]. 1130 Call to [place]' daughter Ute to let her know the discharge plan, she was in agreement with her mom going back to SNF today. Stopped into [facility] room and update her to her to the plan as well. She voiced no concerns about returning back to SNF. No other questions, needs or concerns. CM to continue to follow and assist. Plan for transfer at 1400 today.
--- NOTE | 2016-09-03 12:28 | NUR ---
ALERT, ORIENTED TO PERSON AND PLACE. HX DEMENTIA, AGITATED AT TIMES WITH CARES BUT ALSO PLEASANT. REMAINS ON 3L/NC PER HOME O2 DOSE. PRODUCTIVE COUGH WITH DARK CLOTS EXPECTORATED. NSR WITH RATES MAINLY 70-90'S, HX AFIB. SBP 150'S. AFEBRILE. LEFT CHEST PORT HEPARINIZED AND DE-ACCESSED WITH BAND-AID APPLIED. PIV TO BE REMOVED FROM R) WRIST/FA BEFORE DISMISSING TO [facility]. AMBULATES 1-2PA WITH WALKER AND GAIT BELT. BM THIS MORNING. DEPENDS FOR URGE INCONTINENCE. HX DIABETES TREATED WITH ACHS ACCUCHECKS SSI.
--- NOTE | 2016-09-03 13:54 | NUR ---
PATIENT TRANSFERED TO [facility]IA [facility] AT 1340. VERBAL REPORT GIVEN TO LESLIE PAVON AT [place]. ALL BELONGINGS TAKEN WITH PATIENT. TELEMETRY DC'D, PATIENT DRESSED AND PIV REMOVED FROM RIGHT FA/WRIST WITH GAUZE AND COBAN APPLIED.
== END 2016-09-03 13:40 | disposition swing bed (61) | DRG 163 ==
LOC: GPCU 10:06
PROVIDERS: Hospitalist; ADMIT Internal Medicine
DX: J18.9 Pneumonia, unspecified organism (principal); J96.21 Acute and chronic respiratory failure with hypoxia; R04.2 Hemoptysis; R65.10 Systemic inflammatory response syndrome (SIRS) of non-infectious origin without acute organ dysfunction; N18.3 Chronic kidney disease, stage 3 (moderate); G30.9 Alzheimer's disease, unspecified; F02.80 Dementia in other diseases classified elsewhere, unspecified severity, without behavioral disturbance, psychotic disturbance, mood disturbance, and anxiety; E11.9 Type 2 diabetes mellitus without complications; Z86.718 Personal history of other venous thrombosis and embolism
CPT/HCPCS: J0171; J1642; J1956; J2543; J2997; J7030; J7050